=== PATIENT | female | born 1970 | race Caucasian/White ===

== ENCOUNTER 2017-11-21 17:19 | Emergency (ER) | payer BC ==
[2017-11-21 17:44] VITALS: BP 133/93
--- NOTE | 2017-11-21 18:56 | RAD ---
INDICATION: Several weeks of left heel pain COMPARISON: None. TECHNIQUE: 3 views of the left foot were obtained. FINDINGS: The adequately corticated bones are properly aligned. Joint spaces appear maintained. No fracture, dislocation or focal bony abnormality is seen. There is a small enthesophyte at the origin the plantar fascia at the calcaneal tubercle. IMPRESSION: SMALL ENTHESOPHYTE AT THE ORIGIN OF THE PLANTAR FASCIA ON THE CALCANEAL TUBERCLE THIS OTHERWISE NORMAL LEFT FOOT X-RAY. If the patient's symptoms persist, follow-up imaging is recommended.
--- NOTE | 2017-11-21 19:07 | UC ---
Lower Extremity/Ankle HPI - HPI Summary HPI Summary: left heel painful for several weeks---hurts worse when she gets up from her desk ---no known injury - History of Current Complaint Chief Complaint: UCLowerExtremity Stated Complaint: LFT FOOT COMPLAINT Time Seen by Provider: 11/21/17 18:08 Hx Obtained From: Patient ?: No Onset/Duration: Gradual Onset, Lasting Weeks - 2 Pain Intensity: 6 Pain Scale Used: 0-10 Numeric - plus Aggravating Factor(s): Standing, Ambulation Alleviating Factor(s): Nothing Able to Bear Weight: Yes - Allergies/Home Medications Allergies/Adverse Reactions: Allergies Allergy/AdvReac Type Severity Reaction Status Date / Time phenazopyridine Allergy Intermediate Vomiting Verified 11/21/17 17:45 [From Pyridium] PMH/Surg Hx/FS Hx/Imm Hx Previously Healthy: No Endocrine History: Hypothyroidism - Surgical History Surgical History: Yes Surgery Procedure, Year, and Place: C-Sections, 1990 1995. Hysterectomy, 2005. Left Kidney Surgery to remove four stones, 2010 - Family History Known Family History: Positive: None - Social History Occupation: Employed Full-time Lives: With Family Alcohol Use: None Substance Use Type: None Smoking Status (MU): Never Smoked Tobacco Review of Systems Constitutional: Negative Skin: Negative Eyes: Negative ENT: Negative Respiratory: Negative Cardiovascular: Negative Gastrointestinal: Negative Genitourinary: Negative Motor: Negative Neurovascular: Negative Musculoskeletal: Arthralgia - left plantar foot pain Neurological: Negative Psychological: Negative Is Patient Immunocompromised?: No All Other Systems Reviewed And Are Negative: Yes Physical Exam Triage Information Reviewed: Yes Appearance: Well-Appearing, No Pain Distress, Well-Nourished Vital Signs: Initial Vital Signs Temp 97.7 F 11/21/17 17:39 Pulse 86 11/21/17 17:39 Resp 18 11/21/17 17:39 BP 133/93 11/21/17 17:39 Pulse Ox 99 11/21/17 17:39 Vital Signs Reviewed: Yes Eye Exam: Normal Eyes: Positive: Conjunctiva Clear ENT Exam: Normal ENT: Positive: Normal ENT inspection, Hearing grossly normal. Negative: Trismus , Muffled voice, Hoarse voice Dental Exam: Normal Neck exam: Normal Neck: Positive: Supple, Nontender Respiratory Exam: Normal Respiratory: Positive: Chest non-tender, No respiratory distress, No accessory muscle use Cardiovascular Exam: Normal Cardiovascular: Positive: RRR, Pulses Normal, Brisk Capillary Refill Musculoskeletal Exam: Normal Musculoskeletal: Positive: Strength Intact, ROM Intact, No Edema Neurological Exam: Normal Neurological: Positive: Alert, Muscle Tone Normal Psychological Exam: Normal Psychological: Positive: Normal Response To Family Skin Exam: Normal Diagnostics - Radiology No standard instances Xray Interpretation: Positive (See Comments) Radiology Interpretation Completed By: ED Physician - Patient Name: AVINASH HOSKINS Medical Record#: [id number] Ordering Physician: Ramila Burgos NP Acct.#: [id number] : 1970 Age: 47 Sex: F Location: [facility] Exam Date: 11/21/171815 ADM Status: REG ER Order Information: FOOT LEFT 3+ VWS Accession Number: [id number] CPT: 76715 INDICATION: Several weeks of left heel pain COMPARISON: None. TECHNIQUE: 3 views of the left foot were obtained. FINDINGS : The adequately corticated bones are properly aligned. Joint spaces appear maintained. No fracture, dislocation or focal bony abnormality is seen. There is a small enthesophyte at the origin the plantar fascia at the calcaneal tubercle. IMPRESSION: SMALL ENTHESOPHYTE AT THE ORIGIN OF THE PLANTAR FASCIA ON THE CALCANEAL TUBERCLE THIS OTHERWISE NORMAL LEFT FOOT X-RAY. If the patient 's symptoms persist, follow-up imaging is recommended. <Electronically signed by Kam Barrett MD in [place]> 11/21/171852 Dictated By: Kam Barrett MD Dictated Date/Time: 11/21/171852 Transcribed Date/Time: 11/21/171848 Copy to: CC:Sierra Regalado MD; Ramila Burgos NP; Lorenza Perez MD Imaging - [facility] - [place] [facility] [address] [place] [address] ph [phone] ph [phone] ph [phone]) 1 of 1, Radiologist Lower Extremity Course/Dx - Course Course Of Treatment: cam boot, orthopedic or podiatry follow up, plantar fascia exercises provided - Differential Dx/Diagnosis Provider Diagnoses: Left heel spur, left plantar fasciitis Discharge - Sign-Out/Discharge Documenting (check all that apply): Discharge/Admit/Transfer - Discharge Plan Condition: Stable Disposition: HOME Prescriptions: Lidocaine PATCH 5%* [Lidoderm 5% Patch*] 1 patch TRANSDERM DAILY #1 box Patient Education Materials: Ibuprofen (By mouth), Naproxen (By mouth), Plantar Fasciitis Exercises (GEN), Plantar Fasciitis (ED) Referrals: Sierra Regalado MD [Primary Care Provider] - Esa BLEVINS,Robert Strange [Doctor of Podiatric Medicine] - As Soon As Possible - Billing Disposition and Condition Condition: STABLE Disposition: Home
== END 2017-11-21 19:14 | disposition home or self-care (01) ==
LOC: UCCORT 17:19
DX: M77.32 Calcaneal spur, left foot (principal); M72.2 Plantar fascial fibromatosis; E03.9 Hypothyroidism, unspecified; Z88.8 Allergy status to other drugs, medicaments and biological substances
CPT/HCPCS: 99212; G0463

== ENCOUNTER 2023-11-20 10:03 | Inpatient (IN) ==
[~2023-11-20 10:03] MED LIST: Metoclopramide 5 MG/ML VIAL (10 mg) IV PRN; NS 0.45% 1000 ml BAG 1,000 ML IV SCH; Naloxone 0.4 mg VIAL 0.4 mg/ml 1 ml VIAL IV PRN
[2023-11-20] MEDS ORDERED: Scopolamine 1 mg/72hr PATCH ONE (10:33)
[2023-11-20] MEDS ORDERED: ceFAZolin 2 GM in NS PREMIX 2 GM/100 ML BAG IVPB ONE (10:34)
[2023-11-20 10:53] LABS: Rapid COVID-19 Molecular Undetected (Undetected)
[2023-11-20] MEDS: Scopolamine 1 mg/72hr PATCH TRANSDERM ONE (11:16)
[2023-11-20] MEDS: Lactated Ringers 1000 ml BAG 1,000 ML IV SCH ×2 (11:21→23:20)
[2023-11-20] MEDS ORDERED: Vancomycin 1,000 MG VIAL ONE (12:48)
[2023-11-20] MEDS ORDERED: Midazolam 5 mg/5 ml VIAL 1 mg/ml 5 ml VIAL (5 mg) ONE (15:42)
[2023-11-20] MEDS ORDERED: Dexamethasone IV 4 MG/ML VIAL 1 ml VIAL ONE ×3 (15:43→18:12)
[2023-11-20] MEDS ORDERED: ROPIVACAINE 5 MG/ML 30 ML BTL (0.5%) ONE (15:43)
[2023-11-20] MEDS ORDERED: Propofol 10 mg/ml 100 ML BTL 3,000 MG/300 ML BTL ONE (16:19)
[2023-11-20] MEDS ORDERED: Lidocaine 2% PF 5 ML VIAL ONE (16:39)
[2023-11-20] MEDS ORDERED: Magnesium Hydroxide LIQ 30 ML UDC PO PRN (16:47)
[2023-11-20] MEDS ORDERED: Calcium Carb (TUMS) 500 mg CHEW TAB PO PRN (16:47)
[2023-11-20] MEDS ORDERED: Lactulose 30 ml UDC PO PRN (16:47)
[2023-11-20] MEDS ORDERED: Ondansetron ODT 4 mg TAB 4 MG TAB PO PRN (16:47)
[2023-11-20] MEDS ORDERED: Ondansetron 4 mg VIAL 2 MG/ML 2 ml VIAL IV PRN (16:47)
[2023-11-20] MEDS ORDERED: Dexmedetomidine 200 mcg/2 ml 2 ml VIAL (200 mcg) ONE (16:57)
[2023-11-20] MEDS ORDERED: Tranexamic Acid 1,000 MG/10 ML SDV ONE (17:11)
[2023-11-20] MEDS ORDERED: Propofol 10 MG/ML 20 ML BTL ONE (17:23)
[2023-11-20] MEDS ORDERED: Propofol 10 mg/ml 100 ML BTL 1,000 MG/100 ML BTL ONE (17:24)
[2023-11-20] MEDS ORDERED: Ondansetron 4 mg VIAL 2 MG/ML 2 ml VIAL ONE ×2 (18:12→19:38)
[2023-11-20] MEDS ORDERED: fentaNYL 100 mcg/2 ml 50 MCG/ML VIAL ONE ×2 (19:31→20:03)
[2023-11-20] MEDS: fentaNYL 100 mcg/2 ml 50 MCG/ML VIAL IV PRN (19:35)
[2023-11-20] MEDS: Ondansetron 4 mg VIAL 2 MG/ML 2 ml VIAL IV PRN (19:41)
[2023-11-20] MEDS ORDERED: Acetaminophen IV 1 GM/100ML 1,000 MG/100 ML BAG IV ONE (19:54)
[2023-11-20] MEDS: Magnesium Hydroxide LIQ 30 ML UDC PO SCH (23:18)
[2023-11-21] MEDS: Buffered Lidocaine 1% SYRIN 1 ml INTRADERM ONE (00:50)
[2023-11-21] MEDS: Acetaminophen IV 1 GM/100ML 1,000 MG/100 ML BAG IV ONE (00:50)
[2023-11-21] MEDS: ceFAZolin 2 GM PREMIX 2 GM/50 ML BAG IV SCH (02:08)
[2023-11-21 06:31] LABS: Hematocrit 38.6 % (35-45); Mean Platelet Volume 7.7 fL (7.5-11.2); Platelet Count 221 10^3/uL (150-450)
[2023-11-21 07:27] LABS: Calcium 9.5 mg/dL (8.6-10.3); Creatinine, Serum 0.79 mg/dL (0.51-0.95); Potassium 4.7 mmol/L (3.5-5.0); eGFR CKD-EPI 88.8 (>60)
[2023-11-21] MEDS: Vitamin THERAPEUTIC TAB PO SCH (08:12)
[2023-11-21 14:00] VITALS: BP 117/69
== END 2023-11-21 17:30 | disposition home or self-care (01) | DRG 302 ==
LOC: AA 10:03 → INTOOBSV 10:03 → SSU 19:08
PROVIDERS: ADMIT Orthopaedic Surgery; ATTEND Orthopaedic Surgery